=== PATIENT | female | born 1960 | race African-American/Black ===

== ENCOUNTER → 2016-11-30 | Outpatient (CLI) | payer OTHER ==
[~2016-11-30] MED LIST: CETI-1 PO; VITA1000 PO
[2016-11-30 15:26] LABS: AUTOMATED NEUTROPHIL # 1.4 TH/MM3 (1.8-7.7); BASOPHIL % 0.5 % (0.0-2.0); EOSINOPHIL # 0.1 TH/MM3 (0-0.4); EOSINOPHIL % 2.6 % (0.0-4.0); HEMO FLAGS DIFF FINAL; LYMPH % 43.4 % (9.0-44.0); LYMPHOCYTE # 1.4 TH/MM3 (1.0-4.8); MEAN CELL VOLUME 80.4 FL (80.0-100.0); MEAN CORPUSCULAR HGB CONC 31.2 % (32.0-36.0); MONO % 10.7 % (0.0-8.0); NEUT % 42.8 % (16.0-70.0); PLATELET COUNT 143 TH/MM3 (150-450); RED BLOOD COUNT 4.85 MIL/MM3 (4.00-5.30); RED CELL DISTRIBUTION WIDTH 14.7 % (11.6-17.2); WHITE BLOOD COUNT 3.3 TH/MM3 (4.0-11.0)
[2016-11-30 15:32] LABS: APTT (PATIENT) 25.2 SEC (24.3-30.1); PROTHROMBIN TIME - PATIENT 10.7 SEC (9.8-11.6)
[2016-11-30 15:45] LABS: ANION GAP 6 MEQ/L (5-15); AST (GOT) 12 U/L (15-37); BICARBONATE 29.3 MEQ/L (21.0-32.0); BLOOD UREA NITROGEN 10 MG/DL (7-18); CHLORIDE 106 MEQ/L (98-107); GLOMERULAR FILTRATION RATE 88 ML/MIN (>89); GLUCOSE,FASTING 92 MG/DL (74-99); POTASSIUM 4.1 MEQ/L (3.5-5.1); SODIUM (NA) 141 MEQ/L (136-145)
[2016-11-30 15:46] LABS: ALT (GPT) 17 U/L (10-53)
[2016-11-30 15:48] LABS: ALKALINE PHOSPHATASE 62 U/L (45-117); TOTAL BILIRUBIN ADULT 0.3 MG/DL (0.2-1.0)
--- NOTE | 2016-11-30 17:40 | RADRPT ---
EXAM DATE/TIME: 11/30/2016 15:25 [place] COMPARISON: No previous studies available for comparison. INDICATIONS : Evaluate for pneumonia, pneumothorax, and communicable disease. Pre-op hysterectomy. MEDICAL HISTORY : None. SURGICAL HISTORY : None. ENCOUNTER: Initial ACUITY: 1 day PAIN SCORE: 0/10 LOCATION: chest FINDINGS: PA and lateral views of the chest demonstrate the lungs to be symmetrically aerated without evidence of mass, infiltrate or effusion. The cardiomediastinal contours are unremarkable. Osseous structure s are intact. CONCLUSION: No acute disease. Juanjo Lucio MD FACR on November 30, 2016 at 17:38 Board Certified Radiologist. This report was verified electronically.
--- NOTE | 2016-12-01 11:40 | EKG ---
Date Performed: 11/30/2016 Time Performed: 14:24:50 PTAGE: 56 years EKG: Sinus rhythm VOLTAGE CRITERIA FOR LVH MODERATE T-WAVE ABNORMALITY, CONSIDER ANTEROLATERAL ISCHEMIA VS CHANGES DUE TO LVH ABNORMAL ECG NO PREVIOUS TRACING DOCTOR: Gagan Pagan Interpretating Date/Time 12/01/2016 11:39:27
== END ==
LOC: CPRE 14:08
PROVIDERS: ATTEND Obstetrics & Gynecology Gynecologic Oncology
DX: N85.00 Endometrial hyperplasia, unspecified (principal); R94.31 Abnormal electrocardiogram [ECG] [EKG]
CPT/HCPCS: 36415; 71020; 80053; 85025; 85610; 85730; 93005

== ENCOUNTER 2017-01-19 05:29 | Observation (INO) | payer OTHER ==
[~2017-01-19] VITALS: Ht 160 cm; Wt 89.7 kg
[2017-01-19] MEDS ORDERED: HEPARIN SODIUM - SQ 10,000 UNITS/ML VIAL SQ PRN (06:00)
[2017-01-19] MEDS ORDERED: LACTATED RINGER'S 1000 ML IV PRN (06:15)
[2017-01-19] MEDS ORDERED: SODIUM CHLORID 0.9% 500 ML IV PRN (06:15)
[2017-01-19] MEDS ORDERED: INSULIN HUMAN REGULAR 1,000 UNITS/10 ML VIAL SQ PRN (06:15)
[2017-01-19] MEDS ORDERED: METOPROLOL TARTRATE 25 MG TAB PO PRN ×2 (06:15→20:15)
[2017-01-19] MEDS ORDERED: SODIUM CHLORIDE FLUSH PRN IV FLUSH (06:15)
[2017-01-19] MEDS ORDERED: POVIDONE IODINE 5% (ANTISEPSIS KIT) 4 APPLICATIONS EACH NARE PRN (06:15)
[2017-01-19] MEDS ORDERED: CHLORHEXIDINE GLUCONATE 2 % 1 PACK (2 CLOTHS) TOPICAL PRN (06:15)
[2017-01-19] MEDS ORDERED: ceFAZolin 2 GM PREMIX 50 ML IV SCH (06:15)
[2017-01-19 06:20] VITALS: BP 182/89; PULSE 78; RESP 18; TEMP 98.8; O2SAT 99
[2017-01-19] MEDS ORDERED: LIDOCAINE 1%/EPINEPHrine 1:100,000 SOLN 50 ML VIAL INFIL ONE (08:00)
[2017-01-19] MEDS ORDERED: diphenhydrAMINE HCL 25 MG CAP PO PRN (10:45)
[2017-01-19] MEDS ORDERED: LORazepam 0.5 MG TAB PO PRN (10:45)
[2017-01-19] MEDS ORDERED: SODIUM CHLORIDE 0.9% FLUSH 10 ML FLUSH IV FLUSH PRN (10:45)
[2017-01-19] MEDS ORDERED: DO NOT ADM ANY ANTICOAGULANT DRUGS PRN (10:50)
[2017-01-19] MEDS ORDERED: CETIRIZINE HCL 10 MG TAB PO PRN (11:00)
[2017-01-19] MEDS: D5-1/2 NS + KCL 20 MEQ INJ 1,000 ML IV SCH ×2 (11:15→22:39)
[2017-01-19] MEDS ORDERED: ENALAPRILAT 1.25 MG/ML VIAL ONE (11:34)
[2017-01-19] MEDS: KETOROLAC TROMETHAMINE 30 MG/ML (IVP) VIAL IVP SCH ×3 (11:41→22:38)
[2017-01-19] MEDS ORDERED: HYDROmorphone HCL PF 1 MG/ML VIAL IVP PRN (12:00)
[2017-01-19] MEDS ORDERED: NORMOSOL R INJ 1,000 ML IV ONE (12:00)
[2017-01-19] MEDS ORDERED: KETOROLAC TROMETHAMINE 60 MG/2 ML (IM) VIAL IM ONE (12:00)
[2017-01-19] MEDS ORDERED: ONDANSETRON HCL 4 MG/2 ML VIAL IV PUSH ONE (12:00)
[2017-01-19] MEDS ORDERED: VECURONIUM BROMIDE 20 MG VIAL IV ONE (12:00)
[2017-01-19] MEDS ORDERED: ONDANSETRON HCL 4 MG/2 ML VIAL IVP PRN (12:00)
[2017-01-19] MEDS ORDERED: oxyCODONE/ACETAMINOPHEN 5 MG/325 MG TAB PO PRN ×2 (12:00)
[2017-01-19] MEDS ORDERED: PROPOFOL 200 MG/20 ML AMP IV ONE (12:00)
[2017-01-19] MEDS ORDERED: SUGAMMADEX SODIUM 200 MG/2 ML VIAL IV PUSH ONE ×2 (12:00)
[2017-01-19 13:35] VITALS: BP 151/85; PULSE 69; RESP 16; TEMP 96.2; O2SAT 98
[2017-01-19 16:00] VITALS: BP 162/89; PULSE 71; RESP 16; TEMP 97.5; O2SAT 98
[2017-01-19 20:00] VITALS: BP 198/87; PULSE 101; RESP 17; TEMP 99; O2SAT 97
[2017-01-19] MEDS: SODIUM CHLORIDE 0.9% FLUSH 10 ML FLUSH IV FLUSH SCH (21:00)
[2017-01-19] MEDS: SODIUM CHLORIDE FLUSH BID IV FLUSH SCH ×2 (21:00→22:39)
[2017-01-19] MEDS: HYDROCHLOROTHIAZIDE 25 MG TAB PO SCH (22:38)
[2017-01-20] VITALS: BP 154/70; PULSE 86; RESP 17; TEMP 99.5; O2SAT 98
[2017-01-20 01:06] VITALS: O2SAT 98
[2017-01-20 04:00] VITALS: BP 158/73; PULSE 76; RESP 17; TEMP 98.6; O2SAT 94
[2017-01-20] MEDS: KETOROLAC TROMETHAMINE 30 MG/ML (IVP) VIAL IVP SCH (06:41)
[2017-01-20] MEDS ORDERED: OXYC1TAB63 PO (06:44)
[2017-01-20 06:53] LABS: AUTOMATED NEUTROPHIL # 6.8 TH/MM3 (1.8-7.7); BASOPHIL % 0.2 % (0.0-2.0); EOSINOPHIL % 0.1 % (0.0-4.0); HEMATOCRIT 38.8 % (35.0-46.0); HEMO FLAGS DIFF FINAL; LYMPH % 15.6 % (9.0-44.0); LYMPHOCYTE # 1.4 TH/MM3 (1.0-4.8); MEAN CELL VOLUME 79.3 FL (80.0-100.0); MEAN CORPUSCULAR HEMOGLOBIN 26.2 PG (27.0-34.0); MEAN CORPUSCULAR HGB CONC 33.1 % (32.0-36.0); MONO % 8.6 % (0.0-8.0); NEUT % 75.5 % (16.0-70.0); PLATELET COUNT 127 TH/MM3 (150-450); RED BLOOD COUNT 4.89 MIL/MM3 (4.00-5.30); RED CELL DISTRIBUTION WIDTH 14.6 % (11.6-17.2)
[2017-01-20 07:16] LABS: BICARBONATE 24.2 MEQ/L (21.0-32.0); POTASSIUM 3.7 MEQ/L (3.5-5.1)
[2017-01-20 08:00] VITALS: BP 169/77; PULSE 75; RESP 16; TEMP 98.3; O2SAT 98
[2017-01-20] MEDS: SODIUM CHLORIDE 0.9% FLUSH 10 ML FLUSH IV FLUSH SCH (09:00)
[2017-01-20] MEDS: SODIUM CHLORIDE FLUSH BID IV FLUSH SCH (09:00)
[2017-01-20] MEDS: HYDROCHLOROTHIAZIDE 25 MG TAB PO SCH (10:16)
[2017-01-20 12:00] VITALS: BP 144/73; PULSE 87; RESP 16; TEMP 98.1; O2SAT 100
--- NOTE | 2017-01-20 14:04 | MP ---
cc: BLANCHE ROBERTO MD,DHRUV JOSEPH MD, M.D. DATE OF SURGERY: 01/19/2017 PREOPERATIVE DIAGNOSIS 1. Postmenopausal bleeding. 2. Complex atypical endometrial hyperplasia. 3. Endometrial intraepithelial neoplasm. 4. Enlarged uterus. 5. Left adnexal mass. POSTOPERATIVE DIAGNOSIS 1. Postmenopausal bleeding. 2. Complex atypical endometrial hyperplasia. 3. Endometrial intraepithelial neoplasm. 4. Enlarged uterus. 5. Left adnexal mass. PROCEDURE Robotic-assisted laparoscopic hysterectomy and bilateral salpingo-oophorectomy. SURGEON Nettie Rangel SALES SERVICE COORDINATOR [employer] ANESTHESIA General endotracheal. ESTIMATED BLOOD LOSS 100 cc. IV FLUIDS 2300 cc. URINE OUTPUT 1000 cc. HISTORY A 56-year-old female with postmenopausal bleeding found to have thickened endometrial stripe, prominent uterus, changes suggestive of leiomyomas, left adnexal mass, who underwent further evaluation. Sampling of the endometrium showed complex atypical hyperplasia as well as endometrial intraepithelial neoplasia both of which can be potential malignant precursors. She has been counseled about such as in favor of definitive surgical evaluation and management. She is seen again in the pre-op holding area where these findings are again reviewed. The plan of care is discussed. Questions were answered. She expressed good understanding and wished to move forward with surgery. FINDINGS On exam the uterine cavity sounds to approximately 12 cm. The cervix is prominent but circumferentially smooth. In the peritoneal cavity the uterus is enlarged to approximately 14 cm, diffusely enlarged suggestive of adenomyosis and also multiple leiomyomas. The left tube and ovary is enlarged approximately 4-5 cm, solid-appearing, white, grossly has the appearance of a fibroma. The right and ovary grossly appears normal. There is no adenopathy, no peritoneal implants. The liver and diaphragm edges appeared smooth. The omentum grossly appeared normal. Large and small bowel and adjacent mesentery appeared normal. There were no peritoneal implants. Frozen section analysis of the left ovary favored a fibroma. Evaluation of the endometrium showed no overt evidence of malignancy, no evidence of myometrial invasion. STATEMENT OF COMPLEXITY The complexly of the case was increased due to the markedly enlarged uterus, estimated greater than 250 grams in weight. Modifier should be applied accordingly. DETAILS OF PROCEDURE She was taken to the operating room and placed in dorsal lithotomy position after general endotracheal anesthesia was administered. A timeout was undertaken. She was identified by sight recognition and hospital ID bracelet and the proposed procedure was reviewed and confirmed. She was carefully positioned in padded Faisal stirrups. Her arms were padded and secured to the sides. She was further secured to the operating table with eggcrate padding and tape in an across chest over the shoulder fashion. All sites were noted to be properly aligned with no malalignments or pressure points. She was prepped in sterile fashion, draped below the waist, placed in high lithotomy position. The cervix was grasped, the uterine cavity was sounded. A large VCare manipulator was inserted and secured in the usual fashion. A Webber catheter was placed in the bladder. She was returned to low lithotomy position. A change of sterile gloves was undertaken. We completed draping in anticipation of laparoscopy and confirmed that an orogastric tube was in the stomach on suction. With manual elevation of the abdominal wall and direct laparoscopic visualization a 5 mm cannula was placed in the left upper quadrant. Carbon dioxide gas was insufflated and an atraumatic entry was confirmed. Subtle adhesions from the omentum to the anterior abdominal wall were taken down with sharp dissection. A 12 mm cannula was placed in the midline above the umbilicus. An 8 mm cannula was placed in the right upper quadrant, left upper quadrant and left lateral abdomen, and the original 5 mm cannula exchanged for an 8 mm cannula. Peritoneal washings were obtained for cytology. The anatomy was surveyed with findings as described above. She was placed in steep Trendelenburg position. Small bowel loops were folded back on their mesentery and three Ray-Salvador sponges were placed in the peritoneal cavity around the root of the small bowel mesentery. The robotic system was brought into the operative field, attached in the usual fashion. Monopolar scissors, fenestrated bipolar forceps and ProGrasp manipulators were placed in arms #1, 2 and 3 respectively. I then took my place at the surgeon's console. The right round ligament was isolated, cauterized and transected. The anterior and posterior leafs of the broad ligament were opened. The right ureter was identified. The right infundibulopelvic ligament was isolated to the level of the pelvic brim where it was cauterized and transected. The posterior peritoneum was opened along the right side of uterus and cervix and the right vesicouterine peritoneum dissected off the lower uterine segment and cervix. The right uterine vessels were skeletonized and cauterized. Attention was directed toward the left side. The left round ligament was isolated, cauterized and transected. The anterior and posterior leafs of the broad ligament were opened. The left ureter was identified. The left infundibulopelvic ligament was isolated. The intervening peritoneum was opened. The infundibulopelvic ligament was dissected to the level of the pelvic brim where it was cauterized and transected. The posterior peritoneum was opened along the left side of the uterus and cervix and the left vesicouterine peritoneum was dissected off the lower uterine segment and cervix. The left uterine vessels were skeletonized and cauterized and transected as were the left cardinal, paracervical and uterosacral ligaments isolated, cauterized and transected. Attention was redirected toward the right side where the right uterine vessels were now transected. The cardinal, paracervical and uterosacral ligaments were isolated, cauterized and transected in a stepwise fashion. Circumferential colpotomy was performed following the cap of the [facility] manipulator the cervix from the upper vagina and I left the surgeon's console to help facilitate delivery of the large specimen transvaginally. Countertraction with tenaculums, positioning and traction allowed delivery of the specimen transvaginally which included uterus, cervix, bilateral tubes and ovaries. A pneumo-occluder balloon was placed in the vagina for pneumoperitoneum to help maintain the pneumoperitoneum. I returned to the surgeon's console. Instruments 1 and 3 were exchanged for needle drivers as 0 Vicryl suture was introduced. The vaginal cuff was closed starting at the left corner full-thickness closure including the posterior peritoneum, edge of the uterosacral ligament, tied via instrument tie. The closure was held on countertraction as a running continuous full-thickness closure was carried across the vaginal apex to the contralateral corner where it was similarly fixed, secured and tied via instrument tie. The needle was cut and removed. The pelvis was thoroughly irrigated. Small bleeders were rendered hemostatic with bipolar cautery. The bladder was intact. On inspection there was a good margin between the bladder edge and the vaginal cuff suture line, good peristalsis of ureters bilaterally and good hemostasis. Pathology came back showing no overt malignancy. It was felt that all reasonable surgical objectives had been completed. Accordingly the robotic instruments were removed. The robotic system was disengaged from the operative field and I reentered the bedside under sterile condition. The 12 mm fascial defect was closed with interrupted 0 Vicryl sutures using a needle pass apparatus under direct laparoscopic visualization. They were tied securely which rendered the fascia completely airtight and hemostatic. The remaining cannulas were withdrawn. Carbon dioxide gas was removed from the peritoneal cavity. It should be noted that prior to closure each of the three Ray-Salvador sponges that were in the peritoneal cavity were removed laparoscopically. Each were inspected and noted to be removed in their entirety. There were no remaining foreign objects in the peritoneal cavity. Preliminary counts were correct. The small laparoscopic incisions were closed with 3-0 Vicryl subcutaneous, 3-0 Vicryl subcuticular and Steri-Strips. She was returned to dorsal lithotomy position. Pelvic exam confirmed the vaginal cuff was well-supported, suture line intact. There were no vaginal lacerations. No remaining foreign objects in the vagina. Final counts were correct. She was returned to dorsal supine position and was pending reversal of anesthesia when I left the operating room to precede her to the post-anesthesia care unit. MD JERSEY Goodwin/PETE /11:22 AM /1:43 PM
--- NOTE | 2017-01-26 13:01 | MD ---
cc: AZALEA TAY MD, CHRISTINE C. M.D. SIMONE, MITCHELL ADMISSION DATE: 01/19/2017 DISCHARGE DATE: 01/20/2017 PROCEDURE 01/19/2017 - Robotic-assisted laparoscopic hysterectomy, bilateral salpingo-oophorectomy. PREOPERATIVE DIAGNOSES 1. Complex atypical hyperplasia. 2. Endometrial intraepithelial neoplasm. 3. Leiomyomas. 4. Adenomyosis. HOSPITAL COURSE She did well during the early postop period. She was sitting up, out of bed, tolerating oral intake. Webber catheter was removed. She was pending voiding. Ins and outs 4100/5925. LABORATORY DATA H&H 12.8 and 38.8. Electrolytes essentially normal - potassium 3.7, BUN and creatinine 5.0 and 0.77. PHYSICAL EXAMINATION VITAL SIGNS: Afebrile, pulse 75-101, respirations 16-18, blood pressure 144-198/70-87, O2 saturations greater than or equal to 94%, greater than 97% while awake. GENERAL: Alert and oriented x 3, in no acute distress. LUNGS: Clear. Mild rales at the bases. CARDIOVASCULAR: Regular rate and rhythm. ABDOMEN: Soft. Incisions clean and dry. BILLING CLERK: No bleeding. EXTREMITIES: Nontender. ASSESSMENT Postop day #1 doing well in the early postop. The preliminary pathology, surgical findings and steps taken were reviewed. Activities and restrictions discussed. Questions were answered. She expressed good understanding. Overall she seems to be doing well. PLAN Anticipate meeting criteria for discharge to home. She is to resume prior medications, will have a prescription for Percocet. Our office number is made available. She is to contact us to schedule followup in two weeks or to contact us at any time should she have any questions or problems. MD JERSEY Goodwin/ASAEL /4:28 PM /12:47 PM
== END 2017-01-20 13:50 | disposition home or self-care (01) ==
LOC: HSDC 05:29 → HSDI 10:44 → HOCB 13:35
PROVIDERS: ADMIT Obstetrics & Gynecology Gynecologic Oncology; ATTEND Obstetrics & Gynecology Gynecologic Oncology
DX: N95.0 Postmenopausal bleeding (principal); N85.02 Endometrial intraepithelial neoplasia [EIN]; N85.2 Hypertrophy of uterus; N80.0 Endometriosis of uterus; D27.1 Benign neoplasm of left ovary; D25.9 Leiomyoma of uterus, unspecified; N72 Inflammatory disease of cervix uteri; N83.8 Other noninflammatory disorders of ovary, fallopian tube and broad ligament
CPT/HCPCS: 00840; 58573; 80048; 85025; 86850; 86900; 86901; 88307; 88309; 88331; 94150; G0378; J0690; J1644; J1885; J2405; J3480; J7120; S2900